=== PATIENT | female | born 1960 | race Caucasian/White ===

== ENCOUNTER 2022-04-18 05:19 | Inpatient (IN) ==
[2022-04-18] MEDS ORDERED: IOPAMIDOL 100 ML BOTTLE IV ONE (05:20)
--- NOTE | 2022-04-18 05:38 | Emergency Department Note ---
HPI General Chief complaint: Urogenital-Female Stated complaint: Prolapsed Vagina Time Seen by Provider: 04/18/22 05:37 Source: patient Mode of arrival: EMS Limitations: no limitations History of Present Illness HPI Narrative: 61-year-old female with past medical history of bladder cancer status post cystectomy and ileal conduit, lung cancer status post right upper lobectomy, and vaginal prolapse presenting with abdominal pain and prolapse symptoms. Patient reports approximately 1 month ago she had colpocleisis for vaginal prolapse with Dr. Mejía that was unsuccessful. She states that last night she sneezed a few times and felt like the prolapse was much more significant and throughout the night it has been more painful. States that typically her vaginal prolapse is about the size of her fist but since the sneezing yesterday she feels like it is much larger. She reports periumbilical abdominal pain. She has had some watery vaginal drainage as well. She has been using a pad in her underwear to try and keep the prolapse in place. No bleeding. Denies fever or vomiting. She has also had a hysterectomy. Related Data Home Medications Medication Instructions Recorded Confirmed ascorbic acid (vitamin C) 500 mg 500 mg PO QDAY 03/25/15 01/12/22 chewable tablet calcium carbonate 500 mg calcium 1,250 mg PO Q48 03/25/15 01/12/22 (1,250 mg) tablet cholecalciferol (vitamin D3) 125 5,000 unit PO QDAY 03/25/15 01/12/22 mcg (5,000 unit) tablet multivitamin with [id number] 1 tab PO DAILY 03/25/15 01/12/22 400 mcg-120 mg tablet estradiol g vaginal 01/12/22 01/12/22 Allergies Allergy/AdvReac Type Severity Reaction Status Date / Time No Known Drug Allergies Allergy Verified 04/18/22 05:39 Review of Systems ROS ROS Narrative: Narrative: Constitutional: Denies fever ENT ED: Denies throat pain Cardiovascular: Denies chest pain Respiratory: Denies shortness of breath or cough Gastrointestinal: Reports abdominal pain; Denies nausea or vomiting Genitourinary: Denies dysuria or hematuria Musculoskeletal: Denies back pain Integumentary: Denies rash Neurological: Denies headache Psychiatric: Denies anxiety Endocrine: Denies fatigue Hematological/Lymphatic: Denies easy bruising PFSH Narrative Patient History Narrative: Narrative: Medical/Surgical/Family History All Active Problems (Updated 04/18/22 @ 06:04 by Ranjith Choudhary MD) Vaginal prolapse (Acute) Vaginal prolapse (Acute) Neoplasm of uncertain behavior (Acute) Cough (Acute) Adenocarcinoma of right lung (Chronic) S/P lobectomy of lung (Acute) 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) Dupuytren's contracture (Chronic) Fibrocystic disease of breast (Chronic) Hematuria, gross (Chronic 05/25/14) Microscopic hematuria (Chronic) Hypotension (Chronic) Malignant neoplasm of bladder neck (Chronic 05/25/14) Malignant neoplasm of lateral wall of urinary bladder (Chronic 05/25/14) Myofascial pain (Chronic) Breast calcifications (Chronic 10/10/10) Shoulder pain, right (Chronic) Plantar fasciitis, left (Chronic) Restless leg syndrome (Chronic) Tendonitis (Chronic) Vasomotor instability (Chronic) History of bladder surgery (Chronic 09/19/15) Osteoarthritis (Chronic) Polyp of cervix (Chronic) Malignant neoplasm of bladder neck (Chronic) Trigger thumb, right thumb (Chronic) History of bladder cancer (Chronic) Bladder infection, acute (Acute) Cystocele (Acute) Atrophic vaginitis (Acute) Bladder cancer (Chronic) Carcinoma in situ of bladder (Acute) Lung mass (Acute) Medical History Breast calcifications (10/10/10) Suspicious Dilation of pancreatic duct (10/17/14) And Common bile duct. Stable. Dupuytren's contracture Left third, fourth, and fifth flexor tendons. Fibrocystic disease of breast Bilateral Fracture of ulnar shaft, closed Hematuria, gross (05/25/14) History of bladder cancer Hypotension Asymptomatic Malignant neoplasm of bladder neck (05/25/14) Malignant neoplasm of lateral wall of urinary bladder (05/25/14) Papillary urothelial carcinoma noninvasive. Status post BCG. Sees urology every 6 months Microscopic hematuria Myofascial pain Trapezius Osteoarthritis Right LIDA. Plantar fasciitis, left Nodule; Plantar surface Polyp of cervix Restless leg syndrome Right leg (mild) Shoulder pain, right Posterior; Probable mild impingement syndrome Tendonitis Right thigh adductor Urinary obstruction Vasomotor instability Surgical History History of bladder surgery (09/19/15) Transurethral resection of bladder tumor and fulguration of tumor Transurethral resection of bladder tumor - 12/19/2015 - Dr. Boyer. 08/05/17 high-grade papillary urothelial carcinoma noninvasive. Dr. Boyer. History of bladder surgery (04/02/16) Transurethral resection of bladder tumor with fulguration. History of bladder surgery (08/05/17) TURPT - Dr Boyer History of colonoscopy (10/11/09) 12/17/14: Patient due 2017 Dr Yoon - Hyperplastic polyps - suggested a 5 year recall. 02/19/17: HP-10 year follow up. History of cystoscopy (05/30/14) Cystoscopy and trans-resection of bladder tumor History of shoulder surgery Right shoulder repair S/P breast biopsy, right 2008; Stereotactic biopsy S/P hip replacement 11/2015-Right hip, Dr. Cha Family History Brother Type 1 diabetes mellitus Grandfather Cardiac disease Both maternal and paternal Social History Smoking Status: Former smoker Alcohol Intake Frequency: holiday/special occasion only Substance Use: does not use Exam Narrative Narrative: Narrative: General Limitations: no limitations General appearance: Present alert and other (appears uncomfortable) Head Head: Present atraumatic and normocephalic Eye Eye: Present normal appearance and EOMI; Absent scleral icterus or conjunctival injection ENT ENT: Present mucous membranes moist Neck Neck: Present trachea midline Chest Chest: Present symmetric chest wall rise Respiratory Respiratory: Present normal lung sounds bilaterally; Absent respiratory distress, rales/crackles, wheezes, stridor or accessory muscle use Cardiovascular Cardiovascular: Present regular rate and normal rhythm; Absent systolic murmur or diastolic murmur Adbominal Abdominal: Present soft, tenderness (moderate suprapubic TTP) and other (ileal conduit bag in place with yellow urine); Absent distention, guarding, rebound or rigidity External: Present other (Large vaginal prolapse about the size of an orange with granulation tissue and mucousy drainage. Unable to reduce 2/2 tenderness. No bleeding) Neurological Neurological: Present alert and oriented X3 Psychiatric Psychiatric: Present normal affect and normal mood Skin Skin: Present warm (WNL) and dry Course Vital Signs Vital signs: Vital Signs Temperature 97.8 F 04/18/22 05:32 Pulse Rate 93 H 04/18/22 05:32 Respiratory Rate 16 04/18/22 05:32 Blood Pressure 91/41 04/18/22 05:32 Pulse Oximetry (%) 94 04/18/22 05:32 Oxygen Delivery Method 04/18/22 05:32 Temperature 97.8 F 04/18/22 05:32 Pulse Rate 89 04/18/22 06:31 Respiratory Rate 16 04/18/22 05:32 Blood Pressure 100/52 04/18/22 06:31 Pulse Oximetry (%) 95 04/18/22 06:31 Oxygen Delivery Method 04/18/22 05:32 MDM MDM Narrative Medical decision making narrative: 61-year-old female presenting with abdominal pain and vaginal prolapse. She is mildly hypotensive on arrival, 2L normal saline ordered. She does have periumbilical abdominal tenderness and a large vaginal prolapse that I am unable to manually reduce. IV fentanyl and Zofran ordered. Will obtain labs, CT abdomen, and reevaluate. Patient signed out to oncoming , Dr. Schulte. Lab Data Lab results reviewed: Yes I reviewed the patient's lab results. Result diagrams: 04/18/22 06:04 04/18/22 06:03 Labs: Lab Results 04/18/22 04/18/22 Range/Units 06:03 06:04 WBC 10.8 (4.5-11.0) K/mcL RBC 3.84 (3.59-5.38) M/mcL Hgb 10.7 L (11.2-15.7) g/dL Hct 33.0 L (34.1-44.9) % MCV 85.9 (80.0-100.0) fL MCH 27.9 (26.0-34.0) pg MCHC 32.4 (31.0-36.0) g/dL RDW 14.4 (11.5-14.5) % Plt Count 231 (140-440) K/mcL MPV 11.9 H (7.4-10.4) fL Immature Gran % (Auto) 0.3 (0.0-0.5) % Neut % (Auto) 87.7 H (38.0-78.0) % Lymph % (Auto) 4.9 L (15.5-49.0) % [place] % (Auto) 6.6 (1.0-12.0) % Eos % (Auto) 0.2 (0.0-7.0) % Baso % (Auto) 0.3 (0.0-2.0) % Lymph # (Auto) 0.53 L (1.50-4.80) K/mcL [place] # (Auto) 0.71 (0.10-0.90) K/mcL Eos # (Auto) 0.02 (0.00-0.70) K/mcL Baso # (Auto) 0.03 (0.00-0.30) K/mcL Immature Gran # 0.03 (0.00-0.05) K/mcl Absolute Neutrophils 9.46 H (1.80-8.00) K/mcL VBG Lactic Acid 0.8 (0.5-2.0) mmol/L Discharge Plan Patient/Caregiver Discharge Instructions Pt seen by PARISH NURSE/PA only: No Clinical Impression: Vaginal prolapse Patient Disposition: Still a Patient Condition: Fair Follow up with: Socorro Mejía DO [Physician] - Terrell Caballero DO [Primary Care Provider] - Prescriptions: No Action calcium carbonate 500 mg calcium (1,250 mg) tablet 1,250 mg PO Q48 cholecalciferol (vitamin D3) 5,000 unit tablet 5,000 unit PO QDAY Rx Instructions: administer with meals ascorbic acid (vitamin C) 500 mg tablet,chewable 500 mg PO QDAY [id number] 400-120 mcg-mg tablet 1 tab PO DAILY estradiol 0.01 % (0.1 mg/gram) cream vaginal
[2022-04-18] MEDS ORDERED: 0.9 % SODIUM CHLORIDE 1,000 ML IV ONE ×2 (05:47→06:27)
[2022-04-18] MEDS ORDERED: fentaNYL 100 MCG/2 ML VIAL IV ONE ×2 (05:48→11:25)
[2022-04-18] MEDS ORDERED: ONDANSETRON 4 MG/2 ML VIAL IV ONE (06:01)
[2022-04-18 06:47] LABS: Basophils # (Auto) 0.03 K/mcL (0.00-0.30); Basophils % (Auto) 0.3 % (0.0-2.0); Eosinophils # (Auto) 0.02 K/mcL (0.00-0.70); Eosinophils % (Auto) 0.2 % (0.0-7.0); Hemoglobin 10.7 g/dL (11.2-15.7); Lymphocytes # (Auto) 0.53 K/mcL (1.50-4.80); Lymphocytes % (Auto) 4.9 % (15.5-49.0); Mean Cell Volume 85.9 fL (80.0-100.0); Mean Corpuscular HGB Conc 32.4 g/dL (31.0-36.0); Mean Platelet Volume 11.9 fL (7.4-10.4); Monocytes # (Auto) 0.71 K/mcL (0.10-0.90); Monocytes % (Auto) 6.6 % (1.0-12.0); Neutrophils % (Auto) 87.7 % (38.0-78.0); Platelet Count 231 K/mcL (140-440); RBC 3.84 M/mcL (3.59-5.38); Red Cell Distribution Width 14.4 % (11.5-14.5); WBC 10.8 K/mcL (4.5-11.0)
[2022-04-18 07:01] LABS: ALT/SGPT 17 U/L (<40); AST/SGOT 17 U/L (<32); Albumin 3.2 gm/dL (3.2-5.2); Albumin/Globulin Ratio 0.9 (1.0-2.3); Alkaline Phosphatase 78 U/L (39-117); Bilirubin,Total 0.3 mg/dL (0.1-1.0); Blood Urea Nitrogen 22 mg/dL (8-23); Calcium 8.8 mg/dL (8.6-10.4); Carbon Dioxide 26 mmol/L (22-30); Chloride 102 mmol/L (96-108); Globulin 3.4 gm/dL (2.2-3.7); Glomerular Filtration Rate 103; Glucose 164 mg/dL (70-105)
[2022-04-18] MEDS ORDERED: HYDROmorphone 0.5 MG/0.5 ML SYRINGE IV ONE ×3 (07:06→09:59)
[2022-04-18] MEDS ORDERED: PROMETHAZINE 25 MG/ML VIAL IV ONE (07:33)
[2022-04-18] MEDS ORDERED: diphenhydrAMINE 50 MG/ML VIAL IV ONE (07:35)
--- NOTE | 2022-04-18 07:42 | Emergency Department Note ---
Female Urogenital HPI General Chief complaint: Urogenital-Female Stated complaint: Prolapsed Vagina Time Seen by Provider: 04/18/22 05:37 Source: patient Mode of arrival: EMS Limitations: no limitations History of Present Illness HPI Narrative: Narrative: Patient is a 61-year-old female signed out to me by Dr. Ranjith Choudhary. Briefly, patient presented due to worsening vaginal prolapse and abdominal pain. Patient last night sneezed, and at that time began to have worsening prolapse and abdominal pain. Patient had CMP and CT scan pending upon my arrival to the emergency department. She also had borderline hypotension, but this is while she was lying on her left side with the blood pressure cuff on her right arm. Patient endorses continued significant abdominal pain. She also endorses nausea. Related Data Home Medications Medication Instructions Recorded Confirmed ascorbic acid (vitamin C) 500 mg 500 mg PO QDAY 03/25/15 01/12/22 chewable tablet calcium carbonate 500 mg calcium 1,250 mg PO Q48 03/25/15 01/12/22 (1,250 mg) tablet cholecalciferol (vitamin D3) 125 5,000 unit PO QDAY 03/25/15 01/12/22 mcg (5,000 unit) tablet multivitamin with [id number] 1 tab PO DAILY 03/25/15 01/12/22 400 mcg-120 mg tablet estradiol g vaginal 01/12/22 01/12/22 Allergies Allergy/AdvReac Type Severity Reaction Status Date / Time No Known Drug Allergies Allergy Verified 04/18/22 05:39 Review of Systems ROS ROS Narrative: Narrative: Constitutional: Denies fever ENT ED: Denies throat pain Cardiovascular: Denies chest pain Respiratory: Denies shortness of breath or cough Gastrointestinal: Reports abdominal pain; Denies nausea or vomiting Genitourinary: Denies dysuria or hematuria Musculoskeletal: Denies back pain Integumentary: Denies rash Neurological: Denies headache Psychiatric: Denies anxiety Endocrine: Denies fatigue Hematological/Lymphatic: Denies easy bruising PFSH Narrative Patient History Narrative: Narrative: Medical/Surgical/Family History All Active Problems (Updated 04/18/22 @ 06:04 by Ranjith Choudhary MD) Status post evisceration (Acute) Vaginal prolapse (Acute) Vaginal prolapse (Acute) Neoplasm of uncertain behavior (Acute) Cough (Acute) Adenocarcinoma of right lung (Chronic) S/P lobectomy of lung (Acute) 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) Dupuytren's contracture (Chronic) Fibrocystic disease of breast (Chronic) Hematuria, gross (Chronic 05/25/14) Microscopic hematuria (Chronic) Hypotension (Chronic) Malignant neoplasm of bladder neck (Chronic 05/25/14) Malignant neoplasm of lateral wall of urinary bladder (Chronic 05/25/14) Myofascial pain (Chronic) Breast calcifications (Chronic 10/10/10) Shoulder pain, right (Chronic) Plantar fasciitis, left (Chronic) Restless leg syndrome (Chronic) Tendonitis (Chronic) Vasomotor instability (Chronic) History of bladder surgery (Chronic 09/19/15) Osteoarthritis (Chronic) Polyp of cervix (Chronic) Malignant neoplasm of bladder neck (Chronic) Trigger thumb, right thumb (Chronic) History of bladder cancer (Chronic) Bladder infection, acute (Acute) Cystocele (Acute) Atrophic vaginitis (Acute) Bladder cancer (Chronic) Carcinoma in situ of bladder (Acute) Lung mass (Acute) Medical History Breast calcifications (10/10/10) Suspicious Dilation of pancreatic duct (10/17/14) And Common bile duct. Stable. Dupuytren's contracture Left third, fourth, and fifth flexor tendons. Fibrocystic disease of breast Bilateral Fracture of ulnar shaft, closed Hematuria, gross (05/25/14) History of bladder cancer Hypotension Asymptomatic Malignant neoplasm of bladder neck (05/25/14) Malignant neoplasm of lateral wall of urinary bladder (05/25/14) Papillary urothelial carcinoma noninvasive. Status post BCG. Sees urology every 6 months Microscopic hematuria Myofascial pain Trapezius Osteoarthritis Right LIDA. Plantar fasciitis, left Nodule; Plantar surface Polyp of cervix Restless leg syndrome Right leg (mild) Shoulder pain, right Posterior; Probable mild impingement syndrome Tendonitis Right thigh adductor Urinary obstruction Vasomotor instability Surgical History History of bladder surgery (09/19/15) Transurethral resection of bladder tumor and fulguration of tumor Transurethral resection of bladder tumor - 12/19/2015 - Dr. Boyer. 08/05/17 high-grade papillary urothelial carcinoma noninvasive. Dr. Boyer. History of bladder surgery (04/02/16) Transurethral resection of bladder tumor with fulguration. History of bladder surgery (08/05/17) TURPT - Dr Boyer History of colonoscopy (10/11/09) 12/17/14: Patient due 2017 Dr Yoon - Hyperplastic polyps - suggested a 5 year recall. 02/19/17: HP-10 year follow up. History of cystoscopy (05/30/14) Cystoscopy and trans-resection of bladder tumor History of shoulder surgery Right shoulder repair S/P breast biopsy, right 2008; Stereotactic biopsy S/P hip replacement 11/2015-Right hip, Dr. Cha Family History Brother Type 1 diabetes mellitus Grandfather Cardiac disease Both maternal and paternal Social History Smoking Status: Former smoker Alcohol Intake Frequency: holiday/special occasion only Substance Use: does not use Exam Narrative Narrative: Narrative: General Limitations: no limitations General appearance: Present alert, anxious and grimacing Head Head: Present atraumatic and normocephalic Eye Eye: Present normal appearance and EOMI ENT ENT: Present normal exam and mucous membranes moist Neck Neck: Present normal inspection and full ROM Chest Chest: Present normal inspection and symmetric chest wall rise Respiratory Respiratory: Present normal lung sounds bilaterally; Absent respiratory distress Cardiovascular Cardiovascular: Present normal rhythm and tachycardia Adbominal Abdominal: Present soft and tenderness Extremities Extremities: Present normal inspection and full ROM Back Back: Present normal inspection and full ROM Neurological Neurological: Present alert and oriented X3 Psychiatric Psychiatric: Present normal affect and normal mood Skin Skin: Present warm (WNL) and normal color Course Vital Signs Vital signs: Vital Signs Temperature 97.8 F 04/18/22 05:32 Pulse Rate 93 H 04/18/22 05:32 Respiratory Rate 16 04/18/22 05:32 Blood Pressure 91/41 04/18/22 05:32 Pulse Oximetry (%) 94 04/18/22 05:32 Oxygen Delivery Method 04/18/22 05:32 Temperature 98.2 F 04/19/22 02:00 Pulse Rate 108 H 04/19/22 02:00 Respiratory Rate 24 H 04/19/22 02:00 Blood Pressure 127/80 04/19/22 02:00 Pulse Oximetry (%) 92 04/19/22 02:00 Oxygen Delivery Method 04/19/22 02:00 Oxygen Flow Rate (L/min) 2 04/19/22 02:00 [facility] MDM Narrative Medical decision making narrative: Narrative: Patient is a 61-year-old female signed out by Dr. Ranjith Choudhary. As stated above patient presented due to concerns for worsening prolapse and abdominal pain. CMP has resulted since my arrival to the emergency department. This is reassuring, but patient continues to have significant abdominal pain. Patient initially was unable to tolerate laying on her back for CT scan due to pain and nausea. Dilaudid, promethazine, and diphenhydramine have been given. Patient's CT scan demonstrated severe vaginal and rectal prolapse. I spoke to Dr. Rose given these findings who evaluated the patient and examined vaginal prolapse. Patient was found to have prolapsed colon. Dr. Rose spoke to Dr. Cooper with surgery. They made the decision to take patient for surgery. Lab Data Result diagrams: 04/18/22 22:23 04/18/22 06:03 Labs: Lab Results 04/18/22 04/18/22 04/18/22 Range/Units 06:03 06:03 06:04 WBC 10.8 (4.5-11.0) K/mcL RBC 3.84 (3.59-5.38) M/mcL Hgb 10.7 L (11.2-15.7) g/dL Hct 33.0 L (34.1-44.9) % MCV 85.9 (80.0-100.0) fL MCH 27.9 (26.0-34.0) pg MCHC 32.4 (31.0-36.0) g/dL RDW 14.4 (11.5-14.5) % Plt Count 231 (140-440) K/mcL MPV 11.9 H (7.4-10.4) fL Immature Gran % (Auto) 0.3 (0.0-0.5) % Neut % (Auto) 87.7 H (38.0-78.0) % Lymph % (Auto) 4.9 L (15.5-49.0) % [place] % (Auto) 6.6 (1.0-12.0) % Eos % (Auto) 0.2 (0.0-7.0) % Baso % (Auto) 0.3 (0.0-2.0) % Lymph # (Auto) 0.53 L (1.50-4.80) K/mcL [place] # (Auto) 0.71 (0.10-0.90) K/mcL Eos # (Auto) 0.02 (0.00-0.70) K/mcL Baso # (Auto) 0.03 (0.00-0.30) K/mcL Immature Gran # 0.03 (0.00-0.05) K/mcl Absolute Neutrophils 9.46 H (1.80-8.00) K/mcL VBG Lactic Acid 0.8 (0.5-2.0) mmol/L Sodium 137 (133-145) mmol/L Potassium 3.9 (3.3-5.1) mmol/L Chloride 102 (96-108) mmol/L Carbon Dioxide 26 (22-30) mmol/L Anion Gap 9.0 (8.0-16.0) BUN 22 (8-23) mg/dL Creatinine 0.5 L (0.6-1.1) mg/dL GFR Calculation 103 Glucose 164 H (70-105) mg/dL Calcium 8.8 (8.6-10.4) mg/dL Total Bilirubin 0.3 (0.1-1.0) mg/dL AST 17 (<32) U/L ALT 17 (<40) U/L Alkaline Phosphatase 78 (39-117) U/L Total Protein 6.6 (5.9-8.4) gm/dL Albumin 3.2 (3.2-5.2) gm/dL Globulin 3.4 (2.2-3.7) gm/dL Albumin/Globulin Ratio 0.9 L (1.0-2.3) Discharge Plan Patient/Caregiver Discharge Instructions Pt seen by HOME HEALTH CARE PHYSICIAN/PA only: No Clinical Impression: Vaginal prolapse Activity: other Patient Disposition: Still a Patient Condition: Fair Discharge Date/Time: 04/18/22 10:59
--- NOTE | 2022-04-18 08:39 | Cat Scan Report ---
INDICATION: abdominal pain COMPARISON: Previous CT scans dated 01/23/2022, 10/13/2021, 03/17/2019, 10/16/2016, 09/23/2015 TECHNIQUE: Axial images were obtained through the abdomen and pelvis. Sagittally and coronally reformatted images. 70 mL Isovue 370 injected intravenously. Oral contrast material was not administered FINDINGS: This patient has a history of skin cancer, lung cancer, bladder cancer. She has undergone previous cystectomy, hysterectomy, oophorectomy, right upper lobectomy. Lung bases:Negative. No pulmonary parenchymal nodule. No pleural fluid or pericardial fluid Liver:There are several low density abnormalities which appear stable and are probably benign. There is intrahepatic bile duct dilatation. This is worse than on previous examinations. Gallbladder, bilary:No calcified gallstones. There is intra and extrahepatic bile duct dilatation. Intrahepatic bile duct dilatation is worse than on previous examinations. Common bile duct measures 7 mm. No detectable choledocholithiasis. Spleen:No splenomegaly. Normal enhancement of splenic and portal veins. Pancreas:Pancreatic duct is dilated throughout its length. Pancreatic duct measures 5 mm. This is increased since previous examinations. There is no detectable pancreatic head mass. No obvious mass at the ampulla. Etiology of the pancreatic duct and common bile duct dilatation is not certain. Adrenal glands:Negative Kidneys,ureters,bladder:No solid renal mass. There is a small benign left renal cyst, unchanged. Patient has undergone previous cystectomy with creation of a neobladder. There is mild bilateral hydronephrosis. There is a right-sided ostomy. No hydroureter. No ureteral calculus. Previous cystectomy Gastrointestinal:There is no detectable colonic mass. No diverticulitis. There is no mechanical small bowel obstruction. The pelvis is suboptimally evaluated due to extensive beam hardening artifact related to this patient's right total hip arthroplasty. There is amorphous soft tissue density within the pelvis. This is nonspecific in this postoperative patient. This patient has a history of pelvic floor incompetence with prior surgery. There is severe pelvic prolapse. There is vaginal prolapse and rectal prolapse. There is gas which is caudal to the normal position of the pelvic floor consistent with severe prolapse. This gas appears to be in the colon. A definite peroneal abscess is not identified. No soft tissue gas bubbles. Negative small bowel. No mechanical small bowel obstruction. No bowel wall thickening. No focal abnormality. Negative stomach and duodenum. No focal abnormality. Appendix: The appendix is nonvisualized Vascular: There is calcification of the abdominal aorta. There is no abdominal aortic aneurysm Superior mesenteric artery and celiac trunk are normal. Normal opacification of the inferior mesenteric artery. This patient is very aesthenic with very little fat. The superior mesenteric artery - aortic angle measures 16 mm. There is no evidence for duodenal obstruction. Lymphatic:No retroperitoneal or mesenteric adenopathy Mesentery, peritoneum: No free intraperitoneal fluid. No mesenteric or retroperitoneal mass. No intra-abdominal abscess. Reproductive:Previous hysterectomy and bilateral oophorectomy Musculoskeletal:No lumbar compression fractures. Sacrum and pelvis are negative. No hip fracture. No lytic or sclerotic lesions within the lumbar spine or pelvis. No evidence for metastatic disease. Right total hip arthroplasty with extensive beam hardening artifact No abdominal wall or inguinal hernia IMPRESSION: 1. Previous cystectomy. Previous hysterectomy and bilateral oophorectomy 2. Severe pelvic floor incompetence with severe rectal prolapse and vaginal prolapse. There is extrapelvic gas which appears to be colonic. No evidence for bowel obstruction 3. Bilateral hydronephrosis. Patient has a neobladder and right-sided ostomy 4. Dilatation of the pancreatic duct. Intra and extrahepatic bile duct dilatation. A pancreatic head mass is not identified. An ampullary mass is not identified on this scan The exam was performed using radiation dose optimization techniques including, but not limited to, automated exposure control, adjustment of the mA and/or kV according to patient size and use of iterative reconstruction technique. Interpreted and Authenticated by: Terrell Joseph 04/18/22
--- NOTE | 2022-04-18 11:00 | XRay Report ---
INDICATION: pre surgery TECHNIQUE: AP portable supine chest x-ray COMPARISON: Previous chest x-rays dated 10/20/2021, 09/09/2021, 07/06/2021 FINDINGS:Suboptimal chest x-ray as it is performed in supine position. Lungs:Pulmonary vasculature and interstitial markings are prominent. There is mild peribronchial thickening and there are probably subtle septal lines. Consistent with interstitial pulmonary edema. Gestational pneumonia could have a similar appearance. No parenchymal consolidation. No discrete mass. Heart, vascular:Heart size is within normal limits. There is no cardiomegaly Mediastinum, maged:No mediastinal widening. No hilar mass Pleura:No pleural fluid. No pleural-based mass or calcification Skeletal:Negative. IMPRESSION: 1. Prominent interstitial markings. There is mild peribronchial thickening and probable subtle septal lines. Interstitial edema is possible 2. No parenchymal consolidation. 3. No significant cardiomegaly Interpreted and Authenticated by: Terrell Joseph 04/18/22
[2022-04-18] MEDS ORDERED: ceFAZolin 1 GM VIAL IV ONE (11:21)
[2022-04-18] MEDS ORDERED: DEXAMETHASONE 10 MG/ML VIAL ONE (11:25)
[2022-04-18] MEDS ORDERED: LIDOCAINE HCL/PF 100 MG/5 ML SYRINGE IV ONE (11:25)
[2022-04-18] MEDS ORDERED: KETAMINE 50 MG/ML Syringe (ANEST) IV ONE (11:25)
[2022-04-18] MEDS ORDERED: MAGNESIUM SULFATE 2 GM/50 ML BAG IV ONE (11:25)
[2022-04-18] MEDS ORDERED: PROPOFOL 200 MG/20 ML VIAL IV ONE (11:25)
[2022-04-18] MEDS ORDERED: ONDANSETRON 4 MG/2 ML VIAL ONE (11:25)
[2022-04-18] MEDS ORDERED: HYDROmorphone 1 MG/ML SYRINGE ONE ×2 (11:25→22:25)
[2022-04-18] MEDS ORDERED: GLYCOPYRROLATE 0.2 MG/ML VIAL IV ONE (11:25)
[2022-04-18] MEDS ORDERED: ceFAZolin 2 GM in DEXTROSE 5% IN WATER 50 ML IV SCH (11:30)
[2022-04-18] MEDS ORDERED: LACTATED RINGERS 250 ML IV PRN (11:47)
[2022-04-18] MEDS ORDERED: fentaNYL 100 MCG/2 ML VIAL IV PRN (11:47)
[2022-04-18] MEDS ORDERED: ACETAMINOPHEN 850 MG/85 ML BAG IV ONE (11:47)
[2022-04-18] MEDS ORDERED: METHOCARBAMOL 1,000 MG/10 ML VIAL IV PRN (11:47)
[2022-04-18] MEDS ORDERED: NALOXONE HCL 0.4 MG/ML VIAL IV PRN (11:47)
[2022-04-18] MEDS ORDERED: IPRATROPIUM/ALBUTEROL 3 ML AMPUL.NEB NEB PRN (11:47)
[2022-04-18] MEDS ORDERED: PROMETHAZINE 25 MG/ML VIAL IV PRN (11:47)
[2022-04-18] MEDS ORDERED: LACTATED RINGERS 1,000 ML IV SCH ×2 (12:00→13:30)
[2022-04-18] MEDS ORDERED: BUPIVACAINE W/EPI 0.5% 50 ML VIAL IJ ONE (12:16)
--- NOTE | 2022-04-18 13:23 | History and Physical Report ---
DATE OF ADMISSION: 04/18/2022 HISTORY: This is a 61-year-old white female who presented to the emergency room this morning with acute onset of worsening vaginal prolapse. The patient stated she sneezed and her prolapse worsened to a degree that she was not able to reduce the prolapse and she developed severe pain, which has been hard to manage even with narcotics while she has been in the emergency department. The patient's previous surgical and health history is complicated. She has previously had an exenterative procedure for a bladder cancer, so she has had hysterectomy, cystectomy and has now a urostomy bag. Fairly quickly after this exenterative procedure, which I believe was in the early portion of this year, she developed prolapse of the vagina. Attempts to manage this with a pessary were unsuccessful. She then underwent a colpocleisis per Dr Mejía about 1 month ago and very shortly after that procedure, she had a recurrence of her prolapse. She describes an orange-sized prolapse which was getting increasingly uncomfortable but was not nearly as painful as what she is experiencing this morning. She denies problems evacuating her bowels. She has not noticed any trouble with her urostomy bag draining. Her health history also includes an adenocarcinoma of the lungs for which she has a right lung lobectomy. She also has a history of skin cancer. She is known to have dilation of the pancreatic duct. She has previously had a breast biopsy. Her surgeries include the above as well as trigger thumb on the right and shoulder surgery. PHYSICAL EXAMINATION: General: She is a thin female who appears uncomfortable. She is status post switchboard operator receptionist of Dilaudid. She is alert and oriented however. HEENT: Grossly normocephalic. Lungs: Clear. Heart: Regular rate and rhythm. Abdomen: Soft with bowel sounds present. Her urostomy is draining clear yellow urine. Pelvic exam is limited as has an enormous prolapse which appears to include bowel and this of course is very tender. It appears the mucosa all appears inflamed but not blackened as though necrotic or incarcerated. IMAGING: Her CT evaluation includes the finding of significant vaginal prolapse with gas in what they believe is a colon and it does appear that the bowel has prolapsed through the vaginal orifice. She has bilateral hydronephrosis and essentially no other acute findings as especially there is no free fluid seen. Her hemoglobin is 10.7, which is down from 12.4, which was last measured in January. However, she has had a surgical procedure since then. Her white cell count is 10.8. ASSESSMENT: Massive vaginal prolapse with small bowel prolapsed as well. PLAN: The patient is placed in the Trendelenburg position. We will plan to take her to OR for manual reduction ideally. I have requested consultation from General Surgery, Dr Isa Cooper. The intended procedure has been discussed with the patient and her questions were answered. SAB:akshat Job ID: [id number] Doc ID: [id number] Monica Rose MD cc:DO CARLY Dorado
[2022-04-18] MEDS ORDERED: HYDROcodone/APAP 5/325MG TABLET PO PRN (13:24)
--- NOTE | 2022-04-18 13:41 | Brief Operative Note ---
Brief Operative Note Date of procedure: 04/18/22 Pre-op diagnosis: Recurrent vaginal vault prolapse and evisceration of small b owel. Post-op diagnosis: same Procedure: Exam under anesthesia, reduction of vaginal vault prolapse, small bowel evisceration, reapproximation of posterior vaginal wall placement of Bakri uterine balloon in vagina with closure of labia Grafts/Implants: Yes (bakri balloon for temporary support of pelvic floor) Anesthesia: GLMA (Andrei Rothman CRNA) Findings: Evisceration of small bowel and vaginal prolapse; mass size grossly estimated to be ~20cm Complications: other Complications Description: consulting/co-surgeon Dr. Renato Cooper Surgeon: Monica Rose Estimated blood loss (cc): 5 Specimens Removed/Pathology: other (vaginal mucosa) Condition: stable Disposition: PACU
--- NOTE | 2022-04-18 13:43 | Brief Operative Note ---
Brief Operative Note Date of procedure: 04/18/22 Pre-op diagnosis: Pelvic floor evisceration; small bowel obstruction Post-op diagnosis: other (Disruption of vaginal wall repair with pelvic floor evisceration and small bowel obstruction) Procedure: Examination under anesthesia with reduction of pelvic floor small bowel evisceration; repair of posterior vaginal wall disruption; intravaginal balloon placement and closure of the labia Grafts/Implants: No (Intravaginal balloon placement) Anesthesia: GETA Findings: Total disruption of previous repair of superior margin posterior aspect of vagina with full prolapse of vagina and evisceration of multiple loops of small bowel with edema Complications: none Surgeon: Isa Cooper Specimens Removed/Pathology: none sent Condition: stable Disposition: PACU
[2022-04-18] MEDS: DEXTROSE 5%-NS 1,000 ML IV SCH ×2 (14:31→23:50)
[2022-04-18] MEDS: ONDANSETRON 4 MG/2 ML VIAL IV PRN ×2 (15:48→21:08)
[2022-04-18] MEDS: morphine 2 MG/ML VIAL IV PRN ×4 (15:48→23:42)
[2022-04-18] MEDS: PIPERACILLIN SODIUM/TAZOBACTAM 3.375 GM in DEXTROSE 5% IN WATER 50 ML IV SCH ×2 (15:49→21:10)
[2022-04-18] MEDS ORDERED: SENNOSIDES/DOCUSATE SODIUM 1 TAB TABLET PO SCH (21:00)
[2022-04-18 21:10] LABS: Appearance,Urine Slightly Cloudy (Clear); Bilirubin,Urine Negative (Negative); Color,Urine Light yellow; Culture Indicated,Urine yes; Glucose,Urine (UA) Negative (Negative); Ketones,Urine Negative (Negative); Leukocyte Esterase,Urine Trace /uL (Negative); Mucus,Urine FEW /hpf; Nitrate,Urine Negative (Negative); PH,Urine 6.5 (5.0-9.0); Protein,Urine Negative (Negative); Specific Gravity,Urine 1.015 (1.000-1.035); Urine Blood Moderate ery/mcL (Negative); Urine RBC 20 /hpf (0-3); Urine Squamous Epithelial Cell 0 /hpf (0-4); Urine WBC 15 /hpf (0-4); Urobilinogen,Urine Normal
[2022-04-18] MEDS ORDERED: HYDROmorphone 1 MG/ML SYRINGE IV ONE (22:09)
[2022-04-18] MEDS ORDERED: ACETAMINOPHEN 1,000 MG/100 ML BAG IV ONE ×2 (22:10→22:28)
[2022-04-18 23:24] LABS: Basophils # (Auto) 0.01 K/mcL (0.00-0.30); Basophils % (Auto) 0.1 % (0.0-2.0); Eosinophils # (Auto) 0 K/mcL (0.00-0.70); Eosinophils % (Auto) 0 % (0.0-7.0); Hematocrit 31.9 % (34.1-44.9); Hemoglobin 10.4 g/dL (11.2-15.7); Lymphocytes # (Auto) 0.35 K/mcL (1.50-4.80); Lymphocytes % (Auto) 4.2 % (15.5-49.0); Mean Cell Volume 86.9 fL (80.0-100.0); Mean Corpuscular HGB Conc 32.6 g/dL (31.0-36.0); Mean Platelet Volume 9.8 fL (7.4-10.4); Monocytes % (Auto) 4.8 % (1.0-12.0); Neutrophils % (Auto) 90.7 % (38.0-78.0); Platelet Count 373 K/mcL (140-440); RBC 3.67 M/mcL (3.59-5.38); Red Cell Distribution Width 14.6 % (11.5-14.5); WBC 8.3 K/mcL (4.5-11.0)
--- NOTE | 2022-04-18 23:55 | General Surgery Progress Note ---
SUBJECTIVE Subjective Patient information: Note initiated : 04/18/22 at 11:40 pm Service Date, if different from initiated Date: [] Patient: Jessie Fonseca 61 y/o F admitted on 04/18/22 for Prolapsed Vagina. Chief Complaint: [] Principal diagnosis: Pelvic small bowel evisceration with obstruction Interval history: 61-year-old female who is status post reduction of the small bowel evisceration through the vagina. The patient had a posterior vaginoplasty for pelvic prolapse and it appeared that when she sneezed today her small bowel eviscerated through her vagina the patient was taken to the OR it is not known how long the bowel was out but it was very edematous and thickened with a lot of serosal slough. The patient was examined under anesthesia and the small bowel was reduced back into the pelvic peritoneum with 2 layer closure of the vagina and placement of a Francesco balloon in the vagina to support the floor. The patient was stable and had acute onset of severe abdominal pain associated with tachycardia and low-grade temperature of about 100 degrees. When examined she appears to be in severe distress her blood pressure was stable at 140/80 but her heart rate was about 120. She was moving air well with good ventilation bilaterally. Abdomen was rigid and distended. She had hypoactive bowel sounds. A CT of the abdomen was done and this shows major dilation of the stomach with some developing ileus of the small bowel and colon which is anticipated. She also had specks of free air in the pelvis in the area of the bowel that was reduced. There was no upper abdominal free air. She had dilation of her ileal conduit with hydroureter and hydronephrosis. White count is normal at 8.3. A nasogastric tube was inserted with some decompression of the stomach and the Medina catheter was placed in the ileal conduit with the balloon slightly inflated to retain it. This is just to make sure that her conduit empties appropriately. Constitutional Vitals: Vital Signs Temp Pulse Resp BP Pulse Ox O2 Del Method O2 Flow Rate 100.2 F H 136 H 30 H 127/80 94 2 04/18/22 22:59 04/18/22 22:59 04/18/22 22:59 04/18/22 22:59 04/18/22 22:59 04/18/22 22:59 04/18/22 22:59 Period Temp Pulse Resp BP Sys/[place] Pulse Ox O2 Del Method O2 Flow Rate Last 24 Hr 97.0 F-100.5 F 73-136 14-32 79-140/41-80 88-100 Oxymask-Room Air 0-6 Intake and Output 04/18/22 04/18/22 04/19/22 13:59 21:59 05:59 Intake Total 1085 1850 Output Total 50 Balance 1085 1800 Weight 120 lb 156 lb 14.4 oz Patient Weight 04/19/22 05:59 Weight 156 lb 14.4 oz Intake & Output: Intake & Output 04/18/22 04/18/22 04/19/22 13:59 21:59 05:59 Intake Total 1085 1850 Output Total 50 Balance 1085 1800 Weight 120 lb 156 lb 14.4 oz Intake: IV 1085 1150 Sodium Chloride 0.9% 1,000 ml @ 1000 1000 Wide Open IV BOLUS ONE Rx#: [id number] Zosyn 3.375 gm In Dextrose 5% 100 in Water 50 ml @ 100 mls/hr IV Q8H DION Rx#:[id number] Ancef 2 gm In Dextrose 5% in 50 Water 50 ml @ 100 mls/hr IV PREOP DION Rx#:[id number] Oral 400 GI Tube Flush 300 Output: Void Amount 50 Other: Urine Appearance Clear Urine Color Bright Yellow Urine Odor Strong Head Head exam: Present atraumatic, normal inspection and normocephalic Neck Neck exam: Present full ROM and normal inspection Respiratory Respiratory exam: Present normal respiratory exam and CTAB Additional comments: Mild splinting with inspiration but good breath sounds bilaterally Cardiovascular Additional comments: Resting tachycardia with regular rhythm and 120 bpm GI/Abdominal Additional comments: Distended abdomen with guarding and hyperactive bowel sounds. There was no output through the ileal conduit Additional comments: The introitus is closed with suture and the bakri catheter is still in place. There is no bulging of the perineum A/P Assessment and plan (1) Vaginal prolapse: Status: Acute (2) Status post evisceration: Assessment and plan: Status post reduction of evisceration and closure of posterior wall of vagina Status: Acute (3) Bladder cancer: Status: Chronic Comment: Recurrent. Follows with urology and urologic oncology. Plan is pending upcoming lung biopsy. Qualifiers: Bladder location: neck Qualified Code(s): C67.5 - Malignant neoplasm of bladder neck (4) Lung mass: Status: Acute Plan Continue nasogastric suction Continue catheter and ileal conduit for better emptying [place] use of analgesics including hydromorphone and IV acetaminophen Close monitoring of vital signs Follow-up CBC and lactate if patient is here in the morning Transfer to higher level of care is recommended when bed is available Time Spent With Patient Time: Total time spent is greater than 50% in coordination of care (as documented) at patient's floor/unit and/or counseling patient:
--- NOTE | 2022-04-19 00:33 | Discharge Summary ---
Discharge Provider Provider IMPORTANT FOLLOW-UP INFORMATION FOR PCP: s/p reduction of vaginal evisceration of small bowel Patient information: Note initiated : 04/19/22 at 12:27 am Service Date, if different from initiated Date: [] Patient: Jessie Fonseca 61 y/o F admitted on 04/18/22 for Prolapsed Vagina. Chief Complaint: [Vaginal evisceration of small bowel, severe abdominal pain] Date of admission: 04/18/22 13:30 Discharge date: 04/19/22 Primary care physician: Terrell Caballero DO Admitting clinician: Monica Rose Attending physician on admission: Monica Rose Consults: 04/18/22 Consult to Physician [CONS] Stat Comment: Consulting Provider: Monica Rose Reason For Exam: Physician to Consult 04/18/22 13:21 Consult to Physician [CONS] Routine Comment: Dr. Cooper Consulting Provider: Isa Cooper Reason For Exam: Physician to Consult Attending physician on discharge: Monica Rose Discharging clinician: Monica Rose COURSE Hospital Course Hospital course: Admitted for vaginal reduction of vaginal prolapse and small bowel evisceration Discharge diagnosis: Same and ileus, recurrent severe abdominal pain Reason for admission: same as above Procedures: Exam under anesthesia, reduction of small bowel evisceration, placement of Bakri balloon in vagina and closure of labia in order to retain balloon N/G placement Pertinent studies/significant findings: previous radical surgery/pelvic exenteration with ileal conduit Time Spent with Patient Time attestation: Total time spent providing and/or coordinating discharge services: Time spent: Greater than 30 minutes Physical Examination Vital Signs Vital signs: Temp Pulse Resp BP Pulse Ox O2 Del Method O2 Flow Rate 100.2 F H 136 H 30 H 127/80 94 2 04/18/22 23:06 04/18/22 22:59 04/18/22 22:59 04/18/22 22:59 04/18/22 22:59 04/18/22 22:59 04/18/22 22:59 General physical appearance General physical exam: moderate distress Abdomen Abdomen: Present tender and distended Discharge Plan Patient/Caregiver Discharge Instructions Activity: other Diet: NPO Prescriptions: No Action calcium carbonate 500 mg calcium (1,250 mg) tablet 1,250 mg PO Q48 cholecalciferol (vitamin D3) 5,000 unit tablet 5,000 unit PO QDAY Rx Instructions: administer with meals ascorbic acid (vitamin C) 500 mg tablet,chewable 500 mg PO QDAY stdamejuphmr-vuh-BR-ginkgo 400-120 mcg-mg tablet 1 tab PO DAILY estradiol 0.01 % (0.1 mg/gram) cream vaginal Follow Up Plan Follow up with: Monica Rose MD [Physician] - Socorro Mejía DO [Physician] - Terrell Caballero DO [Primary Care Provider] - Patient Disposition: [facility] Prognosis: Fair Overall status at discharge: patient is not back to baseline Discharge Orders: Discharge Order (Routine); Ordered 04/19/22 Ordered By: Monica Rose Pending Pending Pending: Diet Clear Liquid Diet Start Sat Apr 18 1325 Hydrocodone Bitart/Acetaminophen (Hydrocodone/Apap 5/325mg Tablet) 1 - 2 tab PO Q4HP PRN; Protocol PRN Reason: Per Pain Protocol Last Admin: 04/18/22 20:03 Dose: 1 tab Documented By: MAGI Hydromorphone HCl (Hydromorphone 1 Mg/Ml Syringe) 1 mg IV ONCE ONE; Protocol Stop: 04/18/22 22:10 Last Admin: 04/18/22 22:33 Dose: 1 mg Documented By: MAGI Dextrose/Sodium Chloride (Dextrose 5%-Ns Iv Solution) 1,000 mls @ 125 mls/hr IV .Q8H [facility] Last Admin: 04/18/22 23:50 Dose: 125 mls/hr Documented By: Infusion: 04/18/22 23:50 Dose: 125 mls/hr Documented By: Admin: 04/18/22 14:31 Dose: 125 mls/hr Documented By: CARLITA Piperacillin Sod/Tazobactam (Sod 3.375 gm/ Dextrose) 50 mls @ 100 mls/hr IV Q8H DION; Protocol Last Infusion: 04/18/22 21:42 Dose: 0 mls/hr Documented By: Admin: 04/18/22 21:10 Dose: 100 mls/hr Documented By: Infusion: 04/18/22 17:16 Dose: 0 mls/hr Documented By: Admin: 04/18/22 15:49 Dose: 100 mls/hr Documented By: CARLITA Acetaminophen (Ofirmev) 1,000 mg in 100 mls @ 200 mls/hr IV ONCE ONE; Protocol Stop: 04/18/22 22:39 Last Infusion: 04/18/22 22:51 Dose: 0 mls/hr Documented By: Admin: 04/18/22 22:21 Dose: 200 mls/hr Documented By: MAGI Morphine Sulfate (Morphine 2 Mg/Ml Vial) 0 mg IV Q2HP PRN; Protocol PRN Reason: Per Pain Protocol Last Admin: 04/18/22 23:42 Dose: 2 mg Documented By: Admin: 04/18/22 21:07 Dose: 2 mg Documented By: Admin: 04/18/22 18:04 Dose: 2 mg Documented By: Admin: 04/18/22 15:48 Dose: 2 mg Documented By: CARLITA Ondansetron HCl (Ondansetron 4 Mg/2 Ml Vial) 4 mg IV Q6HP PRN; Protocol PRN Reason: Nausea And Vomiting Last Admin: 04/18/22 21:08 Dose: 4 mg Documented By: Admin: 04/18/22 15:48 Dose: 4 mg Documented By: CARLITA Senna/Docusate Sodium (Sennosides/Docusate Sodium 1 Tab Tablet) 1 tab PO BID DION Last Admin: 04/18/22 20:03 Dose: 1 tab Documented By: MAGI
--- NOTE | 2022-04-19 06:40 | XRay Report ---
INDICATION: NGT placement TECHNIQUE: Supine abdomen. COMPARISON: Previous CT scan dated 04/18/2022 FINDINGS:Esophagogastric tube curled in the stomach with its tip at the fundus. Opacification of both renal collecting systems and ureters. There is bilateral hydronephrosis. There is an ileal conduit in the right lower quadrant. IMPRESSION: Esophagogastric tube in the stomach Interpreted and Authenticated by: Terrell Joseph 04/19/22
--- NOTE | 2022-04-19 06:40 | Cat Scan Report ---
INDICATION: Sudden onset abdominal pain post-op. History of rectal and vaginal prolapse COMPARISON: Multiple previous CT scans. Most recent prior examinations are dated 04/18/2022, 01/23/2022 TECHNIQUE: Axial images were obtained through the abdomen and pelvis. Sagittally and coronally reformatted images. 80 mL Isovue 370 injected intravenously. Oral contrast material was not administered FINDINGS: Examination was initially interpreted by [facility]. There is extensive beam hardening artifact within the pelvis is suboptimal visualization of pelvic structures. Lung bases:Mild bilateral lower lobe pulmonary parenchymal density, left worse than right. Pneumonia is possible. This is a new abnormality. Liver:Benign low density lesions are stable. No new focal intrahepatic abnormality. There is persistent intrahepatic bile duct dilatation. Unchanged Gallbladder, bilary:Gallbladder is unremarkable. No calcified stones. There is extrahepatic bile duct dilatation. Common bile duct currently measures 11 mm but does taper at the ampulla. There is pancreatic duct dilatation which is stable. No detectable choledocholithiasis. No detectable pancreatic head mass. Spleen:No splenomegaly. Normal enhancement of splenic and portal veins. Pancreas:Pancreatic duct remains dilated and measures approximately 5 mm in diameter. This is unchanged since 04/18/2022. No pancreatic mass identified Adrenal glands:Negative Kidneys,ureters,bladder:This patient has a history of a urinary diversion procedure following cystectomy for bladder cancer. There is bilateral hydronephrosis, increased since previous examination. Ureters are opacified. The neobladder, ileal conduit is opacified. There is extraluminal fluid in the right side of the abdomen, surrounding the neobladder. There is contrast material within this fluid within the right lateral conal space. This fluid is new since previous examination. Actual site of contrast extravasation is not identified but presumably the extraluminal fluid is from the urinary tract and probably from the ileal conduit. Etiology of perforation is not certain. I am not given history of instrumentation. Clinical correlation is necessary. Gastrointestinal:The entire perineum is not imaged but there has been apparent interval reduction of severe rectal and vaginal prolapse. The rectum is not well visualized. Sigmoid colon appears unremarkable. Descending colon, transverse colon, ascending colon are normal. There is a round gas collection in the lower right pelvis. Surrounding soft tissues are not well visualized due to severe beam hardening artifact. There was a small amount of gas on prior examination at this location and this is probably intraluminal gas within colon. There is no mechanical small bowel obstruction. No focal small bowel dilatation. The stomach is distended and filled with gas and fluid. Appendix: The appendix is not visualized Vascular: Calcification of the abdominal aorta. No abdominal aortic aneurysm. Superior mesenteric artery and celiac trunk are normal. Normal opacification of the inferior mesenteric artery Lymphatic:No retroperitoneal or mesenteric adenopathy Mesentery, peritoneum: There is intraperitoneal gas with several small bubbles in the upper abdomen. Site of origin is not determinable. These may have arisen from the urinary tract if the ileal conduit was perforated. Bowel origin is also possible although no focal abnormality of the small bowel or large bowel is identified Reproductive:Patient has undergone previous hysterectomy and bilateral oophorectomy Musculoskeletal:No lumbar compression fractures. Sacrum and pelvis are negative. No hip fracture. No abdominal wall or inguinal hernia IMPRESSION: 1. Status post reduction of vaginal and rectal prolapse 2. Increasing bilateral hydronephrosis. Presumably this patient has chronic mild hydronephrosis secondary to previous cystectomy and ureteral diversion procedure and ileal conduit 3. There is contrast material within the neobladder. There is surrounding high density fluid containing contrast material. Perforation of the neobladder or stoma deep to the anterior abdominal wall is suspected. 4. Mild pneumoperitoneum 5. Distended stomach containing fluid and gas 6. Intra and extrahepatic bile duct dilatation. No detectable choledocholithiasis or pancreatic head mass 7. Pancreatic duct dilatation, unchanged 8. Limited evaluation of the pelvis due to extensive beam hardening artifact from right hip arthroplasty The exam was performed using radiation dose optimization techniques including, but not limited to, automated exposure control, adjustment of the mA and/or kV according to patient size and use of iterative reconstruction technique. Interpreted and Authenticated by: Terrell Joseph 04/19/22
--- NOTE | 2022-04-20 07:52 | Operative Note ---
DATE OF OPERATION: 04/18/2022 PREOPERATIVE DIAGNOSES: 1. Recurrent vaginal prolapse with small bowel evisceration. 2. Previous history of pelvic exenterative procedure with ileal conduit cystectomy and hysterectomy for bladder cancer. POSTOPERATIVE DIAGNOSES: 1. Recurrent vaginal prolapse with small bowel evisceration. 2. Previous history of pelvic exenterative procedure with ileal conduit cystectomy and hysterectomy for bladder cancer. PROCEDURE PERFORMED: Examination, reduction of vaginal prolapse and replacement of eviscerated small bowel with closure of the posterior vaginal wall defect, Bakri balloon placement vaginally with closure of the labia to contain the placed balloon. FINDINGS: An approximate 20 cm eviscerated mass that included the anterior vaginal tissue and eviscerated bowel, which all appeared inflamed. CONSULTING PHYSICIAN: Dr. Renato Cooper, General Surgery. DESCRIPTION OF PROCEDURE: The patient was taken to the operating room and placed under anesthesia by Tang Stone CRNA. She was placed in steep Trendelenburg and perineal tissues and eviscerated tissues were gently prepped with Betadine. Exam revealed the above. Dr. Cooper effected the gentle reduction of the above tissues, identified the defect in the vaginal wall, at which point he trimmed the necrotic edges of the vaginal tissues and then reapproximated the vagina in 2 layers with #1 Biosyn. Following this, a Bakri balloon was placed into the cavity and inflated with approximately 75 mL of saline. When this was inflated further, it bulged beyond on the outlet. The labia were then reapproximated in the midline with a running locked stitch of #1 Biosyn in order to keep the balloon retained in this vaginal cavity. Estimated blood loss from the procedure less than 5 mL. Her urostomy bag was draining clear yellow urine. Sponge and needle counts were correct and the patient was transported back to the recovery room in satisfactory condition. cc: MD Terrell Harvey MD Derek Fletcher, MD Shane Pearce, MD Geneen Bigsby, DO SAB:raghu Job ID: [id number] Doc ID: [id number] Monica Rose MD cc:MD Josh Dodson MD Geneen E. Bigsby, DO
--- NOTE | 2022-04-21 14:32 | Operative Note ---
DATE OF OPERATION: 04/18/2022 DATE OF PROCEDURE: 04/18/2022 PREOPERATIVE DIAGNOSIS: Pelvic floor evisceration with small-bowel obstruction. POSTOPERATIVE DIAGNOSES: Disruption of the vaginal wall repair with the pelvic floor evisceration of small bowel and small-bowel obstruction. PROCEDURE: Examination under anesthesia with reduction of the pelvic floor small bowel evisceration. Repair of posterior vaginal wall disruption. Bakri balloon placement with closure of labia. SURGEON: Isa Cooper M.D. FINDINGS: Total destruction of the previous repair of posterior superior margin of the vagina with full prolapse of the vagina and evisceration of multiple loops of small bowel with venous congestion and edema, but without evidence of ischemia. DESCRIPTION OF PROCEDURE: I was consulted immediately preoperatively. The patient has a history of anterior exenteration with ileal conduit. She had had a recent vaginal wall plastic-type procedure because of recurrent prolapse. This was done by [facility]. When the patient was seen, she was in stirrups and was asleep. She had multiple loops of small bowel that were protruding through the vaginal vault and there was full prolapse of the vagina. The bowel was severely congested due to venous congestion and it was felt that she had some venous compression. The irrigation specialist was available. We discussed the approach and it was decided that the initial approach would be to try to reduce the small bowel. Inspection revealed that there was a major disruption of the posterior superior aspect of the vagina and that the bowel was tightly protruding through this. I was able to follow the efferent and afferent loops of the small bowel that had eviscerated. Inspection revealed congestion of the mesentery as well as the bowel wall. The bowel was edematous with some serositis, but was not ischemic. In fact, it had good vascularity. Once I was able to assess the opening through which the bowel protruded, I was able to gradually reduce the small bowel back into the peritoneal cavity. I did this by gradually compressing the bowel and then advancing it into the pelvic peritoneum, taking care not to injure the bowel wall and taking care not to twist the mesentery further. Once this was reduced, I was able to get my hand through the vaginal opening and could feel the bowel, which was adequately positioned in the pelvic peritoneum. Next, inspection of the area of a previous repair showed that the edges were dark and with some black, almost necrotic tissue. The vagina wall was debrided circumferentially until there was good bleeding tissue. Hemostasis was achieved. The edges were then closed [id number] using running locking 0 Prolene. The vagina was then irrigated with Hibiclens solution and another layer of locking imbricating full thickness closure was carried out using 0 Monocryl. This gave added strength to the repair. I discussed how we would be able to manage with keeping the bowel in the peritoneum since the pelvic floor was totally disrupted. It was Dr. Rose's suggestion that we use a Bakri balloon. This was placed and was inflated with 150 mL of sterile saline. This was enough to hold the superior aspect of the vagina in place without putting added tension on the repair. It was then elected to close the labia. This was performed by Dr. Rose using running #1 Monocryl. Once this was completed, the perineum was smooth and there was no bulging. The patient was taken out of Trendelenburg and was cleaned off. She was awakened and was transferred to the postanesthetic care unit in satisfactory condition. [email or web address] Job ID: [id number] Doc ID: [id number] Isa Cooper M.D.
== END 2022-04-19 02:07 | disposition short-term general hospital (02) | DRG 331 ==
LOC: ED 05:19 → SUR 10:59 → MEDSUR 13:30
PROVIDERS: ADMIT Obstetrics & Gynecology; ATTEND Obstetrics & Gynecology